=== PATIENT | female | born 1970 | race American Indian/Alaskan Native ===

== ENCOUNTER 2021-07-07 11:09 | Outpatient (CLI) | payer OTHER ==
--- NOTE | 2021-07-08 08:08 | Mammography Report ---
BILATERAL DIGITAL SCREENING MAMMOGRAM WITH CAD HISTORY: Screening mammogram. TECHNIQUE: Routine digital mammographic imaging performed. This examination was interpreted with [address] benefit of Computer-aided Detection analysis. COMPARISON: None. FINDINGS: Breast Density: heterogeneously dense breast parenchymal pattern which somewhat lessens the sensitivi ty of the evaluation. Digital CC and MLO views demonstrate an asymmetry in the left medial posterior breast. This is seen o n the cc view only. Additionally, there are questionable enlarged left axillary lymph nodes. No susp icious findings within the right breast. IMPRESSION: Left medial posterior breast asymmetry for which additional mammographic views (spot CC, rolled CCs, full ML) are recommended for further evaluation with possible subsequent targeted ultrasound. Questionably enlarged left axillary lymph nodes for which a targeted ultrasound recommended. BIRADS 0-Incomplete: Needs additional imaging evaluation NOTE: WE WILL RECALL THE PATIENT FOR THIS ADDITIONAL EVALUATION. FURTHER INFORMATION: According to the [employer], yearly mammograms are recommend ed starting at age 40 and continuing as long as a woman is in good health. Clinical Breast Exams shou ld be part of a periodic health exam-about every 3 years for women in their 20s and 30s and every yea r for women 40 and over. Breast self exam is an option for women starting in their 20s. Any breast ch [place] noted on a breast self exam should be reported promptly to the patient's healthcare provider. Br east MRI is recommended for women with an approximately 20-25% or greater lifetime risk of breast can cer, including women with a strong family history of breast or ovarian cancer and women who have been treated for Hodgkin's disease. A negative Mammography report should not discourage follow up or biopsy of a clinically significant f inding and/or abnormality. Dense breast tissue may obscure small neoplasms. The patient will be entered into a reminder system with a target due date for the next screening mamm ogram. Signer Name: Shan Garcia MD Signed: 07/08/2021 8:04 AM Workstation Name: [id number]
== END 2021-07-07 11:10 | disposition home or self-care (01) ==
LOC: MAMMO 11:09
DX: Z12.31 Encounter for screening mammogram for malignant neoplasm of breast (principal)
CPT/HCPCS: 77067